=== PATIENT | female | born 1960 ===

== ENCOUNTER 2017-03-29 16:08 | Inpatient (IN) | payer MEDICAID ==
[2017-03-29 16:08] VITALS: BMI 30.9
--- NOTE | 2017-03-29 16:37 | C.PDOC ---
History Of Present Illness 57 y/o female with history of alcohol abuse presents to ER as a transfer for detox. Patient had medical clearance prior to arrival. Patient denies any new complaints at this time. Time Seen by Provider: 03/29/17 16:20 Chief Complaint (Nursing): Psychiatric Evaluation History Per: Patient History/Exam Limitations: no limitations Onset/Duration Of Symptoms: Hrs Past Medical History Reviewed: Historical Data, Nursing Documentation, Vital Signs Vital Signs: Last Vital Signs Temp 97.4 F L 03/29/17 16:13 Pulse 85 03/29/17 16:13 Resp 16 03/29/17 16:13 BP 142/83 03/29/17 16:13 Pulse Ox 97 03/29/17 16:38 - Medical History PMH: Asthma, Diabetes Family History: States: Unknown Family Hx - Social History Hx Alcohol Use: Yes Hx Substance Use: No Review Of Systems Except As Marked, All Systems Reviewed And Found Negative. Constitutional: Negative for: Fever, Chills Cardiovascular: Negative for: Chest Pain Respiratory: Negative for: Shortness of Breath Gastrointestinal: Negative for: Nausea, Vomiting, Diarrhea Skin: Negative for: Rash Physical Exam - Physical Exam Appears: Non-toxic, No Acute Distress Skin: Normal Color, Warm Head: Atraumatic, Normacephalic Oral Mucosa: Moist Neck: Normal ROM Cardiovascular: Rhythm Regular Respiratory: Normal Breath Sounds, No Rales, No Rhonchi, No Wheezing Gastrointestinal/Abdominal: No Tenderness, No Distention, No Rebound Extremity: Normal ROM Neurological/Psych: Oriented x3, Normal Speech ED Course And Treatment O2 Sat by Pulse Oximetry: 97 Disposition - Disposition Disposition: HOSPITALIZED Disposition Time: 16:59 Condition: GOOD - Clinical Impression Clinical Impression: Opiate addiction - PA / AERIAL GUNNER / Resident Statement / has reviewed & agrees with the documentation as recorded. / has examined the patient and agrees with the treatment plan. - Scribe Statement The provider has reviewed the documentation as recorded by the Jeromy Pastor All medical record entries made by the Rocioibluisa were at my direction and personally dictated by me. I have reviewed the chart and agree that the record accurately reflects my personal performance of the history, physical exam, medical decision making, and the department course for this patient. I have also personally directed, reviewed, and agree with the discharge instructions and disposition. Decision To Admit - Pt Status Changed To: Hospital Disposition Of: Inpatient - Admit Certification Admit to Inpatient:: After my assessment, the patient will require hospitalization for at least two midnights. This is because of the severity of symptoms shown, intensity of services needed, and/or the medical risk in this patient being treated as an outpatient. - InPatient: Physician Admission Certification: I certify that this patient requires 2 or more midnights of care for the following reason:: pt needs detox - . Bed Request Type: Detox Admitting Physician: Ivy Malone Patient Diagnosis: Opiate addiction
[2017-03-29] MEDS: Albuterol HFA 90 mcg/actuation (8 g) INH PRN (20:08)
--- NOTE | 2017-03-30 08:59 | PCM.PSYCH ---
Initial Psychiatric Evaluation - Initial Psychiatric Evaluation Type of Admission: Voluntary Legal Status: Capacity Chief Complaint (in patient's own words): "Alcohol" History of Present Illness and Precipitating Events: The pt is seen, chart reviewed and case discussed She is a 57 yo LF, single with 2 adult children. She is unemployed, on SSI and lives with her 18 yo daughter. She says she had a fight with them bc of her drinking and asked for help from AA. Someone from came but since she was in acute wdw she was driven to [facility] ER and we transferred her to detox from there. The pt reports drinking 1/2 bottle liquor and 2-3 beers, x3 years. Started in her early 40's. This is her first treatment for alcohol. No DTs or seizures. No drugs lately but used to use cocaine and heroin intranasally more than 10 years ago. Cigarette 7/d. She reports depressive sxs at this point. No SI. Past psych hx: Denies Family psych hx: Denies Medical hx: DM, CTS, high choles. Current Medications: Active Medications Generic Name Dose Route Start Last Admin Trade Name Freq PRN Reason Stop Dose Admin Albuterol 1 puff 03/29/17 17:06 03/29/17 20:08 Ventolin Hfa 90 Mcg/Actuation (8 G) INH 1 puff RQ4 PRN Administration Shortness of Breath Chlordiazepoxide 25 mg 03/29/17 18:00 03/30/17 05:47 Librium PO 04/02/17 17:59 25 mg Q6 SHAY Administration Taper Chlordiazepoxide 25 mg 03/29/17 16:37 03/29/17 19:25 Librium PO 25 mg Q4H PRN Administration Alcohol Withdrawal Folic Acid 1 mg 03/30/17 10:00 Folic Acid PO DAILY SHAY Hydroxyzine HCl 25 mg 03/29/17 19:14 Atarax PO Q6 PRN Anxiety Metformin HCl 500 mg 03/29/17 18:00 03/29/17 18:10 Glucophage PO 500 mg BID SHAY Administration Multivitamins 1 tab 03/30/17 10:00 Hexavitamin PO DAILY SHAY Thiamine HCl 100 mg 03/30/17 10:00 Vitamin B1 Tab PO DAILY SHAY Trazodone HCl 50 mg 03/29/17 19:15 Desyrel PO HS PRN Insomnia Past Psychiatric History - Past Psychiatric History Previous Treatment History: None Pertinent Medical Hx (Current Medical&Sleep Prob, Allergies): Allergies Allergy/AdvReac Type Severity Reaction Status Date / Time No Known Allergies Allergy Verified 03/29/17 16:13 Albuterol HFA [Ventolin HFA 90 mcg/actuation (8 g)] 90 mcg INH DAILY 03/29/17 MetFORMIN [glucoPHAGE] 500 mg PO BID 03/29/17 Review of Systems - Neurological Neurological: Tremor - Psychiatric Psychiatric: Abnormal Sleep Pattern, Anxiety, Difficulty Concentrating. absent : Hallucinations, Homicidal Ideation, Paranoia, Suicidal Ideation Mental Status Examination - Personal Presentation Personal Presentation: Looks stated age - Affect Affect: Constricted - Motor Activity Motor Activity: Calm - Reliability in Providing Information Reliability in Providing Information: Good - Speech Speech: Organized - Mood Mood: Depressed, Anxious - Formal Thought Process Formal Thought Process: No Impairment - Cognitive Functions Orientation: Person, Place, Situation, Time Sensorium: Alert Attention/Concentration: Attentive Estimate of Intelligence: Below average Judgement: Intact, as evidence by: Insight regarding need for hospitalization Memory: Recent intact, as evidence by: Ability to recall events of the day, Remote intact, as evidenced by: Abilit to recall sig. life events - Risk Risk: Withdrawal, Diminished functioning - Strength & Assets Inventory Strength & Assets Inventory: Cooperative - Limitations Limitations: Other DSM 5 DX - DSM 5 DSM 5 Diagnosis: Alcohol withdrawal Alcohol use d/o - severe Depressive d/o - unspecified - Recommended/Plan of Treatment Treatment Recommendations and Plan of Treatment: Alcohol: Librium detox As needed meds Gabapentni Attend groups and activities Support an dpsychoed Depression: Monitor symptoms Support and psychoed Consider meds if needed Refer to IOP 31 min Projected ELOS: 4 days Prognosis: good Discharge Plan and Discharge Criteria: no wdw sxs refer to IOP - Smoking Cessation Smoking Cessation Initiated: Yes
[2017-03-30] MEDS: Multiple Vitamins Tab PO SCH (09:57)
[2017-03-30] MEDS: Albuterol HFA 90 mcg/actuation (8 g) INH PRN (18:36)
[2017-03-31] MEDS: Multiple Vitamins Tab PO SCH (10:02)
--- NOTE | 2017-03-31 14:09 | PCM.PYCHPN ---
Psychiatric Progress Note - Psychiatric Progress Note Patient seen today, length of contact: 16 min Patient Chief Complaint: "I want to leave" Problems Identified/Issues Discussed: The pt is seen, chart reviewed, case discussed with staff. The pt is compliant with medications and reports no side-effects. Symptoms are improving but needs more time to stabilize. However, she asked for a d/c. But when risks of leaving early discussed, she agreed to stay (for now) After care discussed, support and psychoeducation given. Improving but has low insight Medication Change: Yes (detox changes daily) Medical Record Reviewed: Yes Mental Status Examination - Cognitive Function Orientation: Person, Place, Situation, Time Memory: Impaired (slightly) Attention: WNL Concentration: Poor Association: WNL Fund of Knowledge: WNL - Mood Mood: Depressed, Anxious - Affect Affect: Constricted - Speech Speech: Appropriate - Formal Thought Process Formal Thought Process: No Impairment - Suicidal Ideation Suicidal Ideation: No - Homicidal Ideation Homicidal Ideation: No Goal/Treatment Plan - Goal/Treatment Plan Need for Continued Stay: Discharge may exacerbated symptoms, Severe functional impairment Progress Toward Problem(s) and Goals/Treatment Plan: Alcohol: Librium detox As needed meds Gabapentni Attend groups and activities Support an dpsychoed Depression: Monitor symptoms Support and psychoed Consider meds if needed Refer to IOP Estimated Date of D/C: 04/01/17
[2017-03-31 14:32] VITALS: RESP 18
[2017-03-31] MEDS: Albuterol HFA 90 mcg/actuation (8 g) INH PRN (17:15)
[2017-04-01] MEDS: Albuterol HFA 90 mcg/actuation (8 g) INH PRN (04:11)
[2017-04-01 05:53] VITALS: BP 123/84; PULSE 79; TEMP 97.5; O2SAT 96
--- NOTE | 2017-04-01 08:38 | PCM.PYCHDC ---
Mental Status Examination - Mental Status Examination Orientation: Person, Place, Situation, Time Memory: Intact Mood: Anxious Affect: Constricted Speech: Appropriate, Soft Attention: WNL Concentration: WNL Association: WNL Fund of Knowledge: WNL Formal Thought Process: No Impairment Suicidal Ideation: No Current Homicidal Ideation?: No Discharge Summary - Discharge Note Reason for Hospitalization: Detox for alcohol Consultations:: List each consultation separately and include: 1. Reason for request. 2. Findings. 3. Follow-up Summary of Hospital Course include:: 1. Description of specific treatment plan utilized for patients during their course of treatmen. 2. Summarize the time- course for resolution of acute symptoms and/or regressed behaviors. 3. Describe issues identified and worked on during hospitalization. 4. Describe medication utilized. 5. Describe medical problems identified and treated. 6. Reassessment of suicide risk Summary of Hospital Course: The pt is seen, chart reviewed and case discussed On admission: She is a 57 yo LF, single with 2 adult children. She is unemployed, on SSI and lives with her 18 yo daughter. She says she had a fight with them bc of her drinking and asked for help from . Someone from came but since she was in acute wdw she was driven to [facility] ER and we transferred her to detox from there. The pt reports drinking 1/2 bottle liquor and 2-3 beers, x3 years. Started in her early 40's. This is her first treatment for alcohol. No DTs or seizures. No drugs lately but used to use cocaine and heroin intranasally more than 10 years ago. Cigarette 7/d. She reports depressive sxs at this point. No SI. Hospital course: Pt feels well, without any symptoms and is ready for discharge. WA, CBT used, she attended groups and activities. Librium protocol completed Pt responded well to treatment. Pt will be going to [facility] - Final Diagnosis (DSM 5) Condition upon Discharge: GOOD DSM 5: Alcohol withdrawal Alcohol use d/o - severe Depressive d/o - unspecified Disposition: HOME/ ROUTINE Follow-up Treatment Plan: Attend [facility] IOP Continue below meds Use relapse prevention skills Return to ER if experience suicidal ideation, homicidal ideation, agitation Go to AA Consider MAT Prescriptions/Medication Reconciliation: Albuterol HFA [Ventolin HFA 90 mcg/actuation (8 g)] 1 puff INH RQ4 PRN #1 inhaler PRN Reason: Shortness Of Breath Gabapentin [Neurontin] 300 mg PO BID #60 cap metFORMIN [glucOPHAGE] 500 mg PO BID #60 tab Multivitamins [Hexavitamin] 1 tab PO DAILY #30 tab traZODone [Desyrel] 50 mg PO HS PRN #30 tab PRN Reason: Insomnia - Smoking Cessation Smoking Cessation Medication prescribed: No - Antipsychotic Medications Pt discharged on 2 or more routine antipsychotic medications: No
[2017-04-01] MEDS: Multiple Vitamins Tab PO SCH (09:25)
== END 2017-04-01 09:45 | disposition home or self-care (01) | DRG 426 ==
LOC: C.ER 16:08 → C.7D 16:21
PROVIDERS: ADMIT Psychiatry & Neurology Psychiatry; ATTEND Psychiatry & Neurology Psychiatry
DX: F32.9 Major depressive disorder, single episode, unspecified (principal); E11.9 Type 2 diabetes mellitus without complications; F10.239 Alcohol dependence with withdrawal, unspecified; J45.909 Unspecified asthma, uncomplicated